=== PATIENT | female | born 1965 | race Caucasian/White ===

== ENCOUNTER 2023-02-03 08:51 | Observation (INO) ==
--- NOTE | 2023-01-27 15:56 | Anesthesiology Consultation ---
Date of Service January 27, 2023 Assessment & Plan (1) Encounter for pre-operative examination: Chart Review Chart Review: Acceptable Risk for Surgery and Patient NOT seen in Pre Admission Testing Hx of PONV- has used scop patch in the past- will leave to anesthesiologist discretion DOS if needed DOS (patient not seen in PAT) - Patient is NOT an OPJ candidate (currently 23 hour observation) -Infectious Disease screening: Per PAT nursing assessment on 01/27/23. No known infectious disease contacts in past 10 days or current infectious disease symptoms. No recent travel outside the country. Left Shoulder Open Rotator Cuff Repair, Distal Clavicle Excision, Acromioplasty 07/22/22= Done under [place] with Grade 2 view with Glidescope #3. ETT #7.5. * *Difficult airway, small mouth History Surgery Operation Date: 02/03/23 10:40 Proposed Procedures p Right Total Knee Arthroplasty with Hardware Removal - Gregory Borrero MD Height/Weight Height: 5 ft Weight: 97.976 kg Allergies Allergy/AdvReac Type Severity Reaction Status Date / Time chlorhexidine Allergy Severe Hives Verified 02/03/23 09:48 Bactrim Allergy Mild N/V/HIVES Verified 12/23/19 07:42 codeine Allergy Mild ITCHING Verified 02/03/23 09:47 hydrocodone Allergy Mild ITCHING Verified 02/03/23 09:47 latex Allergy Mild BLISTERS Verified 02/03/23 09:47 pineapple Allergy Mild Anaphylaxis Verified 02/03/23 09:47 sulfamethoxazole Allergy Mild N/V/HIVES Verified 02/03/23 09:47 tetanus toxoid, adsorbed Allergy Mild SWELLING Verified 02/03/23 09:47 HIVES trimethoprim Allergy Mild N/V/HIVES Verified 02/03/23 09:47 Medications Home Medications Medication Instructions Recorded Confirmed Last Taken albuterol sulfate 90 mcg/actuation 2 puffs inhalation Q6H PRN Wheezing 03/24/18 02/03/23 02/03/23 08:15 aerosol inhaler zljlbaf-lqfnjknuqgvnv-futfhiix 250 2 tab PO Q6H PRN Migraine Headache 03/24/18 02/03/23 07/20/22 mg-250 mg-65 mg tablet (Excedrin Migraine) esomeprazole magnesium 20 mg 20 mg PO QAM 03/24/18 02/03/23 02/03/23 04:00 capsule,delayed release (Nexium) hydroxyzine HCl 50 mg tablet 50 mg PO QID PRN Itching 03/24/18 02/03/23 1 Month Ago ~01/04/23 tizanidine 4 mg capsule 6 mg PO HS 11/17/19 02/03/23 02/02/23 19:00 Knee Scooter #1 ea 05/24/21 01/27/23 Unknown cholecalciferol (vitamin D3) 25 25 mcg PO QAM 05/27/21 02/03/23 2 Weeks Ago mcg (1,000 unit) chewable tablet ~01/20/23 (Vitamin D3) cinnamon bark 500 mg capsule 500 mg PO QAM 05/27/21 02/03/23 2 Weeks Ago (Cinnamon) ~01/20/23 cranberry 400 mg capsule 400 mg PO QAM 05/27/21 02/03/23 2 Weeks Ago ~01/20/23 cyanocobalamin (vitamin B-12) 500 500 mcg PO QAM 05/27/21 02/03/23 2 Weeks Ago mcg tablet ~01/20/23 duloxetine 60 mg capsule,delayed 60 mg PO QAM 05/27/21 02/03/23 02/02/23 04:00 release (Cymbalta) fluticasone furoate 200 1 inh inhalation QAM 05/27/21 02/03/23 02/03/23 04:00 mcg-vilanterol 25 mcg/dose inhalation powder (Breo Ellipta) turmeric root extract 500 mg 500 mg PO QAM 05/27/21 02/03/23 2 Weeks Ago capsule ~01/20/23 Bone Stimulator #1 ea 10/28/21 01/27/23 Unknown Lactobacil.acidophilus-Bifido.animalis 1 cap PO BID 06/30/22 02/03/23 2 Weeks Ago 5 billion cell sprinkle capsule ~01/20/23 (Probiotic) naltrexone 50 mg tablet 25 mg PO QAM 06/30/22 02/03/23 02/03/23 04:00 oxycodone 5 mg tablet 5 - 10 mg (1 - 2 x 5 mg) PO Q6 PRN 07/22/22 02/03/23 1 Week Ago pain #40 tabs ~01/27/23 acetaminophen 650 mg 1,300 mg PO QAM 01/27/23 02/03/23 02/02/23 06:45 tablet,extended release betamethasone dipropionate 0.05 % 1 applic topical DAILY PRN Skin 01/27/23 02/03/23 2 Months Ago topical cream Irritation ~12/04/22 cetirizine 10 mg tablet 10 mg PO QAM 01/27/23 02/03/23 02/03/23 04:00 diclofenac sodium 75 mg 75 mg PO QAM pain 01/27/23 02/03/23 2 Weeks Ago tablet,delayed release ~01/20/23 lamotrigine 25 mg tablet 50 mg PO BID 01/27/23 02/03/23 02/03/23 04:00 lorazepam 0.5 mg tablet 0.5 mg PO Q6H PRN Anxiety 01/27/23 02/03/23 1 Week Ago ~01/27/23 metoprolol succinate 50 mg 50 mg PO QAM 01/27/23 02/03/23 02/03/23 04:00 tablet,extended release 24 hr ondansetron 4 mg disintegrating 4 mg PO Q8H PRN nausea 01/27/23 02/03/23 Unknown tablet pregabalin 150 mg capsule 150 - 300 mg PO UD 01/27/23 02/03/23 02/03/23 04:00 tramadol 50 mg tablet 50 mg PO Q6H pain 01/27/23 02/03/23 2 Days Ago ~02/01/23 varenicline 0.5 mg (11)-1 mg (42) 1 ea PO BID 01/27/23 02/03/23 02/03/23 04:00 tablets in a dose pack acetaminophen 500 mg tablet 1,000 mg (2 x 500 mg) PO TID pain 02/01/23 02/03/23 Unknown (Tylenol Extra Strength) 30 days #180 tabs aspirin 81 mg tablet,delayed 81 mg PO BID 45 days #90 tabs 02/01/23 02/03/23 Unknown release (Anabela Low Dose Aspirin) cefadroxil 500 mg capsule 500 mg PO BID 7 days #14 caps 02/01/23 02/03/23 Unknown hydromorphone 2 mg tablet 2 - 4 mg (1 - 2 x 2 mg) PO Q6 PRN 02/01/23 02/03/23 Unknown pain #40 Tabs ketorolac 10 mg tablet 10 mg PO Q6 pain 5 days #20 tabs 02/01/23 02/03/23 Unknown ondansetron 4 mg disintegrating 4 mg PO Q8 PRN nausea #20 tabs 02/01/23 02/03/23 Unknown tablet sennosides 8.6 mg tablet (Senokot) 8.6 mg PO BID prevent constipation 02/01/23 02/03/23 Unknown 14 days #28 tabs Active Medications Generic Name Dose Route Start Last Admin Trade Name Marissa PRN Reason Stop Dose Admin Acetaminophen 1,000 mg 02/03/23 06:00 02/03/23 10:00 Acetaminophen 500 Mg Tab PO 02/03/23 18:00 1,000 mg PREOP PEREZ Administration Celecoxib 200 mg 02/03/23 06:00 02/03/23 10:01 Celebrex 200 Mg Cap PO 02/03/23 18:00 200 mg PREOP PEREZ Administration Clonidine HCl 1 patch 02/03/23 06:00 02/03/23 10:01 Clonidine Hcl 0.1 Mg/24 Hr Transderm Sys TD 02/03/23 18:00 1 patch PREOP PEREZ Administration Dexamethasone Sodium Phosphate 10 mg 02/03/23 06:00 02/03/23 10:02 DexamethasonePf 10 Mg/Ml Vial IV 02/03/23 18:00 10 mg PREOP PEREZ Administration Famotidine 20 mg 02/03/23 06:00 02/03/23 10:01 Famotidine 20 Mg Tab PO 02/03/23 18:00 20 mg PREOP PEREZ Administration Lactated Ringer's 1,000 mls @ 15 mls/hr 02/03/23 06:00 02/03/23 10:00 Lr IV 02/03/23 18:00 15 mls/hr .Q24H PEREZ Administration Lactated Ringer's 1,000 mls @ 60 mls/hr 02/03/23 06:00 02/03/23 09:59 Lr IV 02/03/23 22:39 Not Given .[id number] PEREZ Metoclopramide HCl 10 mg 02/03/23 06:00 02/03/23 10:01 Metoclopramide Hcl 10 Mg Tablet PO 02/03/23 18:00 10 mg PREOP PEREZ Administration Past Medical History Medical History Difficult intravenous access Insulin resistance Cannot tolerate medications Mood disorder lamictal daily Migraine hx Anxiety HTN (hypertension) controlled, stable per pt Hiatal hernia hx-"now resolved" Sleep apnea not currently using cpap Nausea and vomiting after administration of anesthetic agent stated has received scop patch, denies adverse events Asthma well controlled, exercise and perfume induced; last inhaler use 2nd week of 01/2023 Chronic GERD controlled, stable per pt Depression Cervical radiculopathy Past Family History Family History Son Diabetes Past Surgical History Surgical History History of shoulder surgery Left Shoulder Open Rotator Cuff Repair, Distal Clavicle Excision, Acromioplasty 07/22/22= Done under [place] with Grade 2 view with Glidescope #3. ETT #7.5. Difficult airway, small mouth History of esophagogastroduodenoscopy (EGD) History of colonoscopy History of section X2 History of cholecystectomy History of tooth extraction Hx of breast reduction, elective to left, implant to the right side (replacement of right side also) History of carpal tunnel release bilat. H/O foot surgery right foot-neuroma/bunion sx 05/28/2122 Grade 2 view, MAC 3, ETT 7 + PNB. H/O knee surgery X2 right , X1 left Social History Smoking Status: Current every day smoker tobacco type: e-cigarettes Smoking cigarettes per day: currently vaping daily Do You Dip or Chew Tobacco: No Smoking End Date: cigarettes 4-5 years ago Hx Alcohol Use: Yes alcohol intake frequency: other Alcohol Intake Frequency Comment: very rarely Hx Substance Use: No substance use type: does not use Physical Exam Vital Signs Last Vital Signs Temp 36.9 C 02/03/23 09:49 Pulse 77 02/03/23 09:49 Resp 20 02/03/23 09:49 BP 152/90 H 02/03/23 09:49 Pulse Ox 98 02/03/23 09:49 O2 Del Method Room Air 02/03/23 09:49 Lab Results Anesthesia Preop Results Results Anesthesia Widget: WBC 9.49 K/ul (4.8-10.8) 01/26/23 Hgb 14.5 g/dl (12.0-16.0) 01/26/23 Hct 43.2 % (37.0-47.0) 01/26/23 Plt 319 K/uL (130-400) 01/26/23 Na 140 mmol/L (136-145) 01/26/23 K 3.6 mmol/L (3.5-5.1) 01/26/23 Cl 104 mmol/L (98-107) 01/26/23 CO2 30 mmol/L (21-32) 01/26/23 BUN 13 mg/dl (6-23) 01/26/23 Creat 0.75 mg/dl (0.6-1.2) 01/26/23 Glucose Level 128 mg/dl (70-99(Fasting)) H 01/26/23 PT 11.6 Seconds (9.0-12.0) 01/26/23 PTT 28 Seconds (21-31) 01/26/23 INR 1.1 (0.9-1.1) 01/26/23 HA1c Pending 02/03/23 Blood Type O Positive 01/26/23 Antibody Screen NEGATIVE 01/26/23 Testing Electrocardiogram Date: 07/07/22 Findings: + NSR @ (78bpm) Normal EKG per cardio Chest X-Ray Date: 07/07/22 Findings: + NAD
--- NOTE | 2023-01-31 08:44 | History & Physical Report ---
Date of Service January 31, 2023 Assessment & Plan (1) Degenerative arthritis of knee, bilateral: 57-year-old female with a history of a tibial tubercle osteotomy in the past with advanced bilateral knee DJD right side more symptomatic than left. She has failed conservative treatment. She was actually had plan on having her knee replaced 6 months ago but had to cancel due to a shoulder injury. She is now recovered from this and would like to proceed. Plan: Orgran taken the operating do right total knee replacement with risks Mente this procedure plan the patient clued but not limited to DVT PE infection neurological and vascular bleeding palm pain limb range of motion test is fairly her symptoms incomplete relief of symptoms persistent pain etc. per the patient understands and desires to proceed. Informed consent was obtained. Will probably get have to take at least the superior screw out. Will be prepared for that. Will plan on DVT prophylaxis including thigh-high teds, SCDs, aspirin twice a day for 6 weeks. Will likely put some antibiotic in her cement due to her history of previous open knee surgery. She is plan to be discharged home and doing outpatient therapy. She is going to go to [facility]. History of Present Illness Chief Complaint: . Bilateral knee pain and discomfort right side greater than left. Primary Care Provider: Akilah Mcnair MD . Patient is a 57-year-old female who now presents for surgical treatment of her right knee. As she has had a long history of knee problems and been through extensive conservative treatment. We actually scheduled for knee replacement about 6 months ago but canceled as she had a fall and had to have her rotator cuff repaired. As she had the shoulder surgery is done well from that. She is now limited by her knee pain discomfort. Both knees hurt. The right knee is bit worse than the left. He has been to extensive conservative treatment which has become less successful with time. She is got global pain. The more she is up on it the more it hurts. Swells more as the day goes on. Of note, the patient did have a right knee surgery about [address] Botello. He did a tibial tubercle transfer. Allergies Allergy/AdvReac Type Severity Reaction Status Date / Time acetaminophen Allergy Mild ITCHING Verified 01/27/23 14:59 Bactrim Allergy Mild N/V/HIVES Verified 12/23/19 07:42 codeine Allergy Mild ITCHING Verified 01/27/23 14:59 hydrocodone Allergy Mild ITCHING Verified 01/27/23 14:59 latex Allergy Mild BLISTERS Verified 01/27/23 14:59 pineapple Allergy Mild Anaphylaxis Verified 01/27/23 14:59 sulfamethoxazole Allergy Mild N/V/HIVES Verified 01/27/23 14:59 tetanus toxoid, adsorbed Allergy Mild SWELLING Verified 01/27/23 14:59 HIVES trimethoprim Allergy Mild N/V/HIVES Verified 01/27/23 14:59 Home Medications Medication Instructions Recorded Confirmed Type albuterol sulfate 90 mcg/actuation 2 puffs inhalation Q6H PRN Wheezing 03/24/18 01/27/23 History aerosol inhaler xoqsgpz-gfiykhhiclgef-jssfvbua 250 2 tab PO Q6H PRN Migraine Headache 03/24/18 01/27/23 History mg-250 mg-65 mg tablet (Excedrin Migraine) esomeprazole magnesium 20 mg 20 mg PO QAM 03/24/18 01/27/23 History capsule,delayed release (Nexium) hydroxyzine HCl 50 mg tablet 50 mg PO QID PRN Itching 03/24/18 01/27/23 History tizanidine 4 mg capsule 6 mg PO HS 11/17/19 01/27/23 History Knee Scooter #1 ea 05/24/21 01/27/23 Rx cholecalciferol (vitamin D3) 25 25 mcg PO QAM 05/27/21 01/27/23 History mcg (1,000 unit) chewable tablet (Vitamin D3) cinnamon bark 500 mg capsule 500 mg PO QAM 05/27/21 01/27/23 History (Cinnamon) cranberry 400 mg capsule 400 mg PO QAM 05/27/21 01/27/23 History cyanocobalamin (vitamin B-12) 500 500 mcg PO QAM 05/27/21 01/27/23 History mcg tablet duloxetine 60 mg capsule,delayed 60 mg PO QAM 05/27/21 01/27/23 History release (Cymbalta) fluticasone furoate 200 1 inh inhalation QAM 05/27/21 01/27/23 History mcg-vilanterol 25 mcg/dose inhalation powder (Breo Ellipta) turmeric root extract 500 mg 500 mg PO QAM 05/27/21 01/27/23 History capsule Bone Stimulator #1 ea 10/28/21 01/27/23 Rx Lactobacil.acidophilus-Bifido.animalis 1 cap PO BID 06/30/22 01/27/23 History 5 billion cell sprinkle capsule (Probiotic) naltrexone 50 mg tablet 25 mg PO QAM 06/30/22 01/27/23 History oxycodone 5 mg tablet 5 - 10 mg (1 - 2 x 5 mg) PO Q6 PRN 07/22/22 01/27/23 Rx pain #40 tabs acetaminophen 650 mg 1,300 mg PO QAM 01/27/23 01/27/23 History tablet,extended release betamethasone dipropionate 0.05 % 1 applic topical DAILY PRN Skin 01/27/23 01/27/23 History topical cream Irritation cetirizine 10 mg tablet 10 mg PO QAM 01/27/23 01/27/23 History diclofenac sodium 75 mg 75 mg PO QAM pain 01/27/23 01/27/23 History tablet,delayed release lamotrigine 25 mg tablet 50 mg PO BID 01/27/23 01/27/23 History lorazepam 0.5 mg tablet 0.5 mg PO Q6H PRN Anxiety 01/27/23 01/27/23 History metoprolol succinate 50 mg 50 mg PO QAM 01/27/23 01/27/23 History tablet,extended release 24 hr ondansetron 4 mg disintegrating 4 mg PO Q8H PRN nausea 01/27/23 01/27/23 History tablet pregabalin 150 mg capsule 150 - 300 mg PO UD 01/27/23 01/27/23 History tramadol 50 mg tablet 50 mg PO Q6H pain 01/27/23 01/27/23 History varenicline 0.5 mg (11)-1 mg (42) 1 ea PO BID 01/27/23 01/27/23 History tablets in a dose pack Past Med/Surg History Medical History Difficult intravenous access Insulin resistance Cannot tolerate medications Mood disorder lamictal daily Migraine hx Anxiety HTN (hypertension) controlled, stable per pt Hiatal hernia hx-"now resolved" Sleep apnea not currently using cpap Nausea and vomiting after administration of anesthetic agent stated has received scop patch, denies adverse events Asthma well controlled, exercise and perfume induced; last inhaler use 2nd week of 01/2023 Chronic GERD controlled, stable per pt Depression Cervical radiculopathy Surgical History History of shoulder surgery Left Shoulder Open Rotator Cuff Repair, Distal Clavicle Excision, Acromioplasty 07/22/22= Done under [place] with Grade 2 view with Glidescope #3. ETT #7.5. Difficult airway, small mouth History of esophagogastroduodenoscopy (EGD) History of colonoscopy History of section X2 History of cholecystectomy History of tooth extraction Hx of breast reduction, elective to left, implant to the right side (replacement of right side also) History of carpal tunnel release bilat. H/O foot surgery right foot-neuroma/bunion sx 05/28/2122 Grade 2 view, MAC 3, ETT 7 + PNB. H/O knee surgery X2 right , X1 left Family History Son Diabetes Social History Smoking Status: Current every day smoker Tobacco Type: Cigarettes and E-cigarettes / Vaping Cigarettes Per Day: currently vaping daily; Second Hand Exposure: No; Do You Dip or Chew Tobacco: No; Hx Alcohol Use: Yes Hx Substance Use: No Preferred Language: Mongolian Communication Ability: Effective Hearing Ability: Normal Hitting Coach Required: No Beliefs That Will Affect Care: None marital status: Current Living Situation: Spouse current occupational status: employed Feels Safe at Home: Yes Assistive Devices: Glasses Review of Systems All systems reviewed & are unremarkable except as noted in HPI & below. Physical Exam . Physical examination of the right knee reveals patient to ambulates independently. Got a moderate to large soft tissue envelope. She got a well- healed incision in the front of her knee. Is got varus alignment. She is tender medial joint line. Range of motion about 10 degrees show full extension to about 115 degrees of flexion.. No pain with hip motion. Negative straight leg raise. Constitutional WD/WN, vitals as above Respiratory normal respiratory effort, lungs clear to auscultation Cardiovascular RRR, no murmur, no edema Gastrointestinal (Abdomen) normal bowel sounds, soft, nontender, no hepatosplenomegaly Results & Data Results & Data Laboratory Results . Diagnostic Findings . X-rays of the right knee reveal advanced right knee DJD. She is got complete loss of medial joint space. She got osteophytes primarily medially. She is got evidence of the tibial tubercle osteotomy with 2 tibial tubercle screws. She is got advanced tricompartment disease. PG Care Time/CCT Total # of Minutes Spent Total Time Spent with Patient: Total time spent is greater than 50% in coordination of care (as documented) at patient's floor/unit and/or counseling patient: Coding Level of Care Code None Diagnoses Degenerative arthritis of knee, bilateral M17.0
[~2023-02-03 08:51] MED LIST: ACETAMINOPHEN 500 MG TAB PO SCH; BUPIVACAINE LIPOSOME/PF 266 MG, BUPIVACAINE/EPINEPHRINE 50 ML, SODIUM CHLORIDE 0.9% PF ... INFIL SCH; CeleBREX 200 MG CAP PO SCH; FAMOTIDINE 20 MG TAB PO SCH; LR 500ML BOLUS, THEN 15ML/HR IV SCH; LR 60ML/HR IV SCH; METOCLOPRAMIDE HCL 10 MG TABLET PO SCH; ROPIVACAINE 0.5% 5 MG/ML 30 ML VIAL ONE; TRANEXAMIC ACID 1,000 MG **IV Intra-op IV SCH; ceFAZolin 2000MG 2,000 MG/15 ML SYR IV SCH; cloNIDine HCL 0.1 MG/24 HR TRANSDERM SYS TD SCH; dexAMETHasone**PF** 10 MG/ML VIAL IV SCH
--- NOTE | 2023-02-03 09:06 | History & Physical Bridge Note ---
Date of Service February 03, 2023 History & Physical Bridge Note I have examined the patient, reviewed the History & Physical and in the interval since the performance of the History & Physical I have noted the following changes of clinical significance: no changes noted
[2023-02-03] MEDS ORDERED: LIDOCAINE 2% 2 ML VIAL/AMP(20MG/ML) INFIL ONE (09:47)
[2023-02-03] MEDS ORDERED: MIDAZOLAM HCL 1 MG/ML 2ML VIAL ONE ×3 (09:47→11:50)
[2023-02-03] MEDS ORDERED: ONDANSETRON INJ 2 MG/ML 2 ML VIAL ONE (09:47)
[2023-02-03] MEDS ORDERED: PROPOFOL IV EMULSION 10 MG/ML 20 ML VIAL IV ONE (09:47)
[2023-02-03 10:22] LABS: Estimated Average Glucose 123 mg/dl; Hemoglobin A1C 5.9 % (4.5-5.6)
[2023-02-03] MEDS ORDERED: KETOROLAC 30 MG/ML VIAL IV PRN (10:22)
[2023-02-03] MEDS ORDERED: HYDROmorphone INJ 1 MG/ML SYRINGE IV PRN (10:22)
[2023-02-03] MEDS ORDERED: ATROPINE SULFATE 0.1 MG/ML 10ML SYR IV PRN (10:22)
[2023-02-03] MEDS ORDERED: PROMETHAZINE HCL 6.25 MG in SODIUM CHLORIDE 0.9% 50 ML IV PRN (10:22)
[2023-02-03] MEDS ORDERED: ONDANSETRON INJ 2 MG/ML 2 ML VIAL IV PRN ×2 (10:22→15:24)
[2023-02-03] MEDS ORDERED: ePHEDrine sulfate 50 MG/ML AMP IV PRN (10:22)
[2023-02-03] MEDS ORDERED: SODIUM CHLORIDE 0.9% PF 50 ML VIAL ONE (11:19)
[2023-02-03] MEDS ORDERED: BUPIVACAINE/EPINEPHRINE 0.25% 1:200,000 30 ML VIAL ONE (11:19)
[2023-02-03] MEDS ORDERED: VANCOMYCIN HCL 1000MG/20ML VIAL ONE (11:19)
[2023-02-03] MEDS ORDERED: BUPIVACAINE LIPOSOME 1.3% 266 MG/20 ML VIAL ONE (11:20)
--- NOTE | 2023-02-03 13:47 | Operative Report ---
PG Post Operative Report Pre & Post Diagnosis Operation Date: 02/03/23 10:40 Pre-Op Diagnosis: Degenerative arthritis of knee, bilateral - right greater than left Post-Op Diagnosis: Degenerative arthritis of knee, bilateral - right greater than left I identified the patient and participated in the time-out.: Yes Procedure Operation Date: 02/03/23 10:40 Actual Procedures p Right Total Knee Arthroplasty with Hardware Removal(Right) - Gregory Borrero MD Surgeon Gregory Borrero MD Pre Kindergarten Teacher Solis Estrella PA-C Estimated Blood Loss 50 Findings Consistent with Post-Op Diagnosis Operative findings with advanced right knee tricompartment DJD. She had extensive grade 4 cvqn-[id number] disease in all 3 compartments most severe medially. She had retained hardware which had to be removed. She had a fixed varus varus deformity to her knee. Some moderate osteopenia. Bone spurs in all 3 compartments. Specimens Right knee sent for pathology. Drains None Anesthesia Type Spinal MAC Complications none Indications Patient is a 57-year-old female is had a long history of right knee pain discomfort is gradually gotten worse over time. She is had a tibial tubercle osteotomy done 30 years or so ago. She BenzoDox conservative care extensively without adequate relief. She is actually scheduled for knee surgery about 6 months ago but had a fall onto her rotator cuff and had to have this fixed. She is now recovered from that and has elected proceed with total knee arthroplasty. Description of Procedure Operative implants consist of: 1. Biomet Vanguard size 57.5 right posterior stabilized femoral component. 2. Biomet size 63 tibial tray. 3. 10 mm post stabilized polyethylene insert. 4. 28 x 8 all poly patella. The patient was taken the operating, identified, placed on the operating table in the supine position. All contact areas were appropriately padded. IV antibiotics tried by anesthesia team. A Chatman catheter was placed in sterile fashion. A right Hytinic was placed. The right lower extremity was then prepped and draped in usual sterile fashion. The right leg was elevated exsanguinated with use of an Esmarch and the tourniquet placed at 300 mmHg. An anterior approach to the right knee was then performed to longitudinal incision using the previous incision for the osteotomy and extending it proximally. Sharp dissection was carried through subcutaneous tissue down the extensor mechanism. Medial parapatellar arthrotomy incision was made. Some subperiosteal dissection was carried out medially. The fat pad was resected from Neath patella tendon. Lateral patellofemoral ligament was released. Patella subluxated laterally and the knee was flexed. The osteophytes taken off distal femur. The ACL and PCL released from the distal femur. I did spend quite a bit of time mobilizing her extensor mechanism as it was fairly scarred down. The tibial tubercle was medialized as well which made exposure bit more difficult. The knee was flexed. The patella subluxated laterally. The lateral patellofemoral ligament was released. The. The tibia subluxated anteriorly. The external tibial alignment jig was then placed in the interface the tibia and adjusted 12 mm medially. Proximal tibial cut was made to move out a millimeter bone from most deficient aspect medial tibial plateau. Some osteophytes taken off medial and posterior medially. Attention drawn the femur. The distal femur was then with a sharp drill. Intramedullary canal was suction. A right 5 degree valgus cutting guide was placed. The distal femoral cutting block was pinned in place. Distal femoral cut was made to take an additional 3 mm of bone off distal femur. The femur was then sized to a size 57.5. The AP cutting block was pinned parallel to the epicondylar axis which was 4 degrees of external rotation. Anterior cut, anterior chamfer, posterior cut, posterior chamfer cuts were made. The box cutting guide was placed in just the box cut was made. The knee was flexed. The remnants of the medial and lateral menisci were excised. The osteophytes taken off the posterior aspect of femur. Attention drawn toward removing the hardware. I attempted to find the screw location of the superior screw but was having difficulty doing that. Therefore I brought fluoroscopy in the to exactly find out where this was as I did not want to damage his patella tendon and the tibial tubercle insertion. We located this under fluoroscopy. I was able to remove some bone over the screw and identified. I backed it out without incident. We then proceeded with a preparation of bone. The femoral component was then placed. The tibial tray was pinned Simin external rotation and the drill and stem punch used to create defect in proximal tibia for the tibial tray. The knee was then trialed and the 10 mm insert fit most appropriately. Attention drawn the patella. The patella was cleaned of all soft tissues. Patella thickness measured 20 mm in thickness was cut down to 13. Was sized to a size 28 patella. The lug holes were drilled for the 28 patella. Lateral osteophytes removed. Patella button was placed. Knee was taken through range of motion patella tracked nicely with no thumbs test. Attention drawn to placing the permanent components. Nupathe all trial components were removed. Bone plug was placed in the distal femur limit blood loss. Double batch of Palacos G cement was mixed. I did add an additional gram of vancomycin due to her history of open surgery. Diabetes history and significant obesity. A Biomet Vanguard size 57.5 right Po stabilized femoral component, a size 63 tibial tray, a 10 mm pro stabilized polyethylene insert, and a 28 x 8 all poly patella then cemented in place. The knee was brought out into full extension till cement hardened. Final cement check was then performed. The pericapsular tissues were injected with total 100 cc of combination of 20 cc of Exparel, 30 cc normal saline, 50 cc of quarter percent Marcaine with epinephrine. Patient did receive 1 g tranexamic acid. The tourniquet was then let down for final tourniquet time 71 minutes. Hemostasis assured with electrocautery. Extensor mechanism closed with combination 1 PDS suture #1 Vicryl suture in [id number]-qi-qyydn fashion. Extensor mechanism checked found to be intact through the subcutaneous tissues then close d with 2 Dexon suture in a buried interrupted fashion skin was closed skin eduard. Leg was then cleaned and dried and sterile dressing was Xeroform, 4 fours, sterile cast padding, Fadi bandage were applied. Patient then transferred to the recovery room in stable condition. Patient tolerated procedure well and there were no complications. Solis Estrella, my physician journeyman operator assistant, was present for the entire procedure. His assistance was essential and required for appropriate patient positioning, prepping and draping, surgical exposure, performing the technical details of the operation, placement the implants, closure of the wound, and placement of the sterile bandage. I attest to the content of the Intraoperative Record and any orders documented therein. Any exceptions are noted below.
--- NOTE | 2023-02-03 14:12 | Anesthesiology Progress Note ---
Date of Service February 03, 2023 Anesthesia Post Procedure Vital Signs Vital Signs: Temp Pulse Resp BP Pulse Ox O2 Del Method O2 Flow Rate 02/03/23 14:00 71 16 138/77 97 Oxymask 4 02/03/23 13:50 73 15 134/76 99 Oxymask 4 02/03/23 13:42 36.3 C L 83 12 146/83 H 96 Oxymask 6 02/03/23 09:49 36.9 C 77 20 152/90 H 98 Room Air Transfer of Care Handoff Completed per policy Notes Mental Status: alert / awake / arousable Patient Amnestic to Procedure: Yes Nausea / Vomiting: adequately controlled Pain: adequately controlled Airway Patency, RR, SpO2: stable & adequate BP & HR: stable & adequate Hydration State: stable & adequate Neuraxial Anesthesia: was administered and sensory block is resolving Anesthetic Complications: no major complications apparent
--- NOTE | 2023-02-03 14:22 | XRay Report ---
RIGHT KNEE 2 VIEWS History: Right total knee arthroplasty. Degenerative arthritis. Postop. FINDINGS: The patient is status post a right total knee arthroplasty. The hardware is intact. No frac ture or dislocation. Skin eduard are in place. IMPRESSION: Right total knee arthroplasty. No evidence for hardware complication. ACT 112: Negative or not required by law. Electronically signed by: Shimon Owens M.D. 02/03/2023 2:19 PM
--- NOTE | 2023-02-03 14:26 | Fluoroscopy Report ---
FL knee RT 1 or 2V CLINICAL HISTORY: RT HARDWARE REMOVAL COMPARISON STUDY: Right knee radiographs January 01, 2023. FLUOROSCOPY TIME: 5.7 seconds. Ka, r: 0.58 mGy FLUOROSCOPIC IMAGES: 2 FINDINGS: Fluoroscopy was provided during removal of the right tibial hardware. 2 fluoroscopic images demonstrate 2 screws within the right tibia. Subsequent right knee radiographs following the arthrop lasty demonstrated removal of the proximal screw. Distal screw remains in place. IMPRESSION: Fluoroscopy provided during right tibial hardware removal, as described above. ACT 112: Negative or not required by law. Electronically signed by: Tim Ly M.D. 02/03/2023 2:25 PM
[2023-02-03] MEDS ORDERED: LORazepam 0.5 MG TAB PO PRN (15:24)
[2023-02-03] MEDS ORDERED: NALOXONE HCL 0.4 MG/1 ML VIAL/CARP IV PRN (15:24)
[2023-02-03] MEDS ORDERED: ALBUTEROL HFA 8 GM INHALER INH PRN (15:24)
[2023-02-03] MEDS ORDERED: GLUCOSE 10 TAB/TUBE PO PRN (15:24)
[2023-02-03] MEDS ORDERED: bisacodyL 10 MG SUPP PR PRN (15:24)
[2023-02-03] MEDS ORDERED: HYDROmorphone INJ 0.5 MG/0.5 ML SYR IV PRN (15:24)
[2023-02-03] MEDS ORDERED: METOCLOPRAMIDE HCL INJ 5 MG/ML 2 ML VIAL IV PRN (15:24)
[2023-02-03] MEDS ORDERED: CARBOHYDRATES FOR HYPOGLYCEMIA PO PRN (15:24)
[2023-02-03] MEDS ORDERED: TAMSULOSIN HCL 0.4 MG CAP PO PRN (15:24)
[2023-02-03] MEDS ORDERED: GLUCAGON FOR INJ 1 MG VIAL SQ PRN (15:24)
[2023-02-03] MEDS ORDERED: MAGNESIUM HYDROXIDE SUSP 30 ML UDC PO PRN (15:24)
[2023-02-03] MEDS ORDERED: DEXTROSE 50% 50 ML SYRINGE IV PRN (15:24)
[2023-02-03] MEDS ORDERED: diphenhydrAMINE Capsule 25 MG CAP PO PRN (15:24)
[2023-02-03] MEDS ORDERED: ALUMINUM/MAGNESIUM SUSP 30 ML UDC PO PRN (15:24)
[2023-02-03] MEDS ORDERED: PHARMACY GLYCEMIC MGMT CONSULT PRN (15:24)
[2023-02-03] MEDS ORDERED: GLUCOSE 40% GEL 15 GM TUBE PO PRN (15:24)
[2023-02-03] MEDS ORDERED: NON-FORMULARY MEDICATION (Betamethasone Dipropionate 0.05 % Cream) TOP PRN (15:24)
[2023-02-03] MEDS ORDERED: hydrOXYzine HCl 25 MG TAB PO PRN (15:24)
[2023-02-03] MEDS: SODIUM CHLORIDE 0.9% 1,000 ML IV SCH (16:04)
[2023-02-03] MEDS: KETOROLAC 30 MG/ML VIAL IV SCH ×2 (16:05→23:23)
[2023-02-03] MEDS: ACETAMINOPHEN 500 MG TAB PO SCH ×2 (16:05→21:10)
[2023-02-03] MEDS: Scopolamine CHECK PATCH PLACEMENT SCH (16:06)
[2023-02-03] MEDS: HYDROmorphone HCL 2 MG TAB PO PRN ×2 (17:10→23:22)
[2023-02-03] MEDS: ASCORBIC ACID 500 MG TAB PO SCH (17:11)
[2023-02-03] MEDS: INSULIN ASPART PER UNIT CHARGE SC SCH ×2 (18:42→21:08)
[2023-02-03] MEDS ORDERED: TRANEXAMIC ACID / 0.7% NACL 1,000 MG/100 ML BAG IV SCH (19:45)
[2023-02-03] MEDS: ceFAZolin 2000MG 2,000 MG/15 ML SYR IV SCH (19:57)
[2023-02-03] MEDS ORDERED: LANTUS PER UNIT CHARGE SC ONE (20:45)
[2023-02-03] MEDS ORDERED: NON-FORMULARY MEDICATION (L. Acidophilus/Bifid. Animalis [Probiotic] 5 billion cell Capsul PO SCH (21:00)
[2023-02-03] MEDS ORDERED: PREGABALIN 150 MG CAP PO SCH (21:00)
[2023-02-03] MEDS ORDERED: SENNA 8.6 MG TAB PO SCH (21:00)
[2023-02-03] MEDS ORDERED: tiZANidine HCL 4 MG TABLET PO SCH (21:00)
[2023-02-03] MEDS: ASPIRIN 81 MG ECTAB PO SCH (21:10)
[2023-02-03] MEDS: lamoTRIgine 25 MG TAB PO SCH (21:10)
[2023-02-03] MEDS: DOCUSATE SODIUM 100 MG CAP PO SCH (21:11)
[2023-02-03] MEDS: SENNA 8.6 MG TAB PO SCH (21:11)
[2023-02-04] MEDS: Scopolamine CHECK PATCH PLACEMENT SCH ×2 (00:05→08:59)
[2023-02-04] MEDS: SODIUM CHLORIDE 0.9% 1,000 ML IV SCH (01:41)
[2023-02-04] MEDS: ceFAZolin 2000MG 2,000 MG/15 ML SYR IV SCH (02:48)
[2023-02-04] MEDS: KETOROLAC 30 MG/ML VIAL IV SCH (05:37)
[2023-02-04 07:15] LABS: Hematocrit (blood only) 37.6 % (37.0-47.0); Hemoglobin 12.3 g/dl (12.0-16.0); Mean Corpuscular Hemoglobin 28.6 pg (25.0-34.0); Mean Corpuscular Hgb Conc 32.7 g/dL (32.0-36.0); Mean Corpuscular Volume 87.4 fL (80.0-100.0); Mean Platelet Volume 9.6 fL (9.4-12.4); Platelet Count 293 K/uL (130-400); RDW Coefficient of Variation 13.5 % (11.5-14.5); RDW Standard Deviation 42.9 fL (36.4-46.3); White Blood Count 17.28 K/ul (4.8-10.8)
[2023-02-04 07:50] LABS: BUN Creatinine Ratio 22.1 (10-20); Calcium 8.8 mg/dl (8.6-10.3); Creatinine Clr Calc Pharmacy 83.3 ml/min; Est GFR (African American) 98.6 ml/min; Est GFR (Non-African American) 85.1 ml/min; Potassium 4.1 mmol/L (3.5-5.1)
[2023-02-04] MEDS ORDERED: dexAMETHasone 10 MG in SYRINGE 0 ML IV SCH (08:00)
[2023-02-04] MEDS: DOCUSATE SODIUM 100 MG CAP PO SCH (08:56)
[2023-02-04] MEDS: HYDROmorphone HCL 2 MG TAB PO PRN (08:56)
[2023-02-04] MEDS: lamoTRIgine 25 MG TAB PO SCH (08:57)
[2023-02-04] MEDS: SENNA 8.6 MG TAB PO SCH (08:57)
[2023-02-04] MEDS: ASCORBIC ACID 500 MG TAB PO SCH (08:58)
[2023-02-04] MEDS: ASPIRIN 81 MG ECTAB PO SCH (08:58)
[2023-02-04] MEDS: ACETAMINOPHEN 500 MG TAB PO SCH (08:59)
[2023-02-04] MEDS ORDERED: METOPROLOL SUCC 50MG EXT REL TAB PO SCH (09:00)
[2023-02-04] MEDS ORDERED: PREGABALIN 150 MG CAP PO SCH (09:00)
[2023-02-04] MEDS ORDERED: CYANOCOBALAMIN (B-12) 500 MCG TABLET PO SCH (09:00)
[2023-02-04] MEDS ORDERED: LANTUS PER UNIT CHARGE SC SCH (09:00)
[2023-02-04] MEDS ORDERED: DULoxetine HCL 60 MG CAP PO SCH (09:00)
[2023-02-04] MEDS ORDERED: NON-FORMULARY MEDICATION (Turmeric Root Extract 500 mg Capsule) PO SCH (09:00)
[2023-02-04] MEDS ORDERED: MULTIVITAMIN TAB PO SCH (09:00)
[2023-02-04] MEDS ORDERED: CETIRIZINE HCL 10 MG TABLET PO SCH (09:00)
[2023-02-04] MEDS ORDERED: FLUTICASONE/VILANTEROL 200/25MCG 14 PUFFS/INHALER INH SCH (09:00)
[2023-02-04] MEDS ORDERED: NON-FORMULARY MEDICATION (Cinnamon Bark [Cinnamon] 500 mg Capsule) PO SCH (09:00)
[2023-02-04] MEDS ORDERED: NALTREXONE HCL 50 MG TAB PO SCH (09:00)
[2023-02-04] MEDS ORDERED: PANTOprazole 40 MG TAB PO SCH (09:00)
[2023-02-04] MEDS ORDERED: CHOLECALCIFEROL 1,000 UNITS 25 MCG TAB PO SCH (09:00)
[2023-02-04] MEDS: INSULIN ASPART PER UNIT CHARGE SC SCH (09:12)
--- NOTE | 2023-02-04 09:29 | Orthopedic Progress Note ---
Date of Service February 04, 2023 Assessment & Plan (1) Status post right knee replacement: Overall, she is doing quite well today with good pain control to the right knee. She will work with physical therapy today to work on ambulation and range of motion exercises. She is on aspirin for DVT prophylaxis. She can be discharged home later today after physical therapy evaluation. She will follow-up with Dr. Borrero in 2 weeks for postoperative care. Geneva Hernandez was seen and evaluated at bedside today resting comfortably in no apparent distress. She notes that she has been up and out of bed and ambulating to the bathroom with no issues. She has yet to be seen by physical therapy this morning. She denies any other concerns. Review of Systems All systems reviewed & are unremarkable except as noted in HPI & below. Physical Exam . On physical examination of the right knee, dressing is in place, clean, dry, intact. Her leg is out in full extension. She has active plantarflexion dorsiflexion to the right ankle. +2 DP and PT pulses. Less than 2-second capillary refill. Normal sensation. Neurovascular intact. Results & Data Results & Data Laboratory Results . Diagnostic Findings . Postoperative x-rays of the right knee show prosthesis to be in anatomical alignment with no evidence of fracture complication or loosening. PG Care Time/CCT Total # of Minutes Spent Total Time Spent with Patient: Total time spent is greater than 50% in coordination of care (as documented) at patient's floor/unit and/or counseling patient: Coding Level of Care Code 57893 Post Operative Follow-Up Diagnoses Status post right knee replacement Z96.651
--- NOTE | 2023-02-04 09:31 | Discharge Summary ---
Date of Service February 04, 2023 Admission HPI (Per Admitting) . Patient is a 57-year-old female who now presents for surgical treatment of her right knee. As she has had a long history of knee problems and been through extensive conservative treatment. We actually scheduled for knee replacement about 6 months ago but canceled as she had a fall and had to have her rotator cuff repaired. As she had the shoulder surgery is done well from that. She is now limited by her knee pain discomfort. Both knees hurt. The right knee is bit worse than the left. He has been to extensive conservative treatment which has become less successful with time. She is got global pain. The more she is up on it the more it hurts. Swells more as the day goes on. Of note, the patient did have a right knee surgery about [address] Botello. He did a tibial tubercle transfer. Admission Exam (Per Admitting) . Physical examination of the right knee reveals patient to ambulates independently. Got a moderate to large soft tissue envelope. She got a well-healed incision in the front of her knee. Is got varus alignment. She is tender medial joint line. Range of motion about 10 degrees show full extension to about 115 degrees of flexion.. No pain with hip motion. Negative straight leg raise. Principal Diagnosis Same as "Discharge Diagnosis" noted below under Discharge Instructions. Discharge Exam . On physical examination of the right knee, dressing is in place, clean, dry, intact. Her leg is out in full extension. She has active plantarflexion dorsiflexion to the right ankle. +2 DP and PT pulses. Less than 2-second capillary refill. Normal sensation. Neurovascular intact. Discharge Data Procedures Performed Operation Date: 02/03/23 10:40 Actual Procedures p Right Total Knee Arthroplasty (Right) - Gregory Borrero MD s with Hardware Removal(Right) - Gregory Borrero MD Ordered Studies 02/03/23 FL knee RT 1 or 2V Routine 02/03/23 05:00 US - OR guided needle placemen Routine Hospital Course (1) Status post right knee replacement: On February 03, 2023 Mary arrived at [facility] and underwent a right total knee arthroplasty without complications. She had a spinal anesthetic. Postoperatively, she was started on aspirin for DVT prophylaxis and transferred to the general orthopedic floor in stable condition. Her hospital course was uneventful. On postoperative day #1, her vital signs are stable and her pain was well-controlled. She participated well with physical therapy working on ambulation and range of motion exercises. She was then discharged home in stable condition. She is going to follow-up with Dr. Borrero in 2 weeks for postoperative care. PG Care Time/CCT Total # of Minutes Spent Total Time Spent with Patient: Total time spent is greater than 50% in coordination of care (as documented) at patient's floor/unit and/or counseling patient: Discharge Plan Discharge Items Patient Disposition: Home - Self-Care Reason For Visit: Right Knee DJD Right Knee Painful Hardware Discharge Diagnosis: Right Knee Replacement Activity: Per Instructions section Weightbearing: Full weightbearing Non-emergency contact: Surgeon Call non-emergency contact if: you have any medication questions Follow-up/Referrals: Akilah Mcnair MD [Primary Care Provider] - Diet: Carb Consistent or DM2 Addtl Attending Provider Instructions: ACTIVITY RECOMMENDATIONS: Physical Therapy: * You will go to physical therapy three times each week for four to six weeks after your surgery in order to regain your knee range of motion and to retrain your knee to work properly. * It is just as important to make sure you are getting your knee perfectly straight as it is to regain your knee bend. * Taking a pain pill an hour before therapy can help you have a more productive and comfortable therapy session. Home Exercise: * You were shown a series of exercises (heel props, heel slides, etc.) in the hospital. Do these exercises three to four times each day including the exercises you were shown in physical therapy. Walking: * Get up and walk several times each day. For the first four weeks, try not to stand or walk for more than one hour at a time. If you do stand or walk for more than one hour, you will not hurt anything, but your knee and leg will likely swell. * As you feel comfortable, you may change from the walker or crutches to a cane and then to independent walking. MEDICATIONS: New Medicine: * You will likely be taking one or more of these medications: 1. Dilaudid - A quick and shorter-acting pain medication. Take one to two tablets every six hours to lessen your pain. 2. Aspirin - Thins your blood to lessen the chance of forming a blood clot. * The most common side effects of pain medicine and iron are nausea and constipation. If nausea or constipation is too much of a problem or if you have any questions about your new medicines or doses, call [facility] at [phone]. We will try to help you manage these issues. "VERY IMPORTANT TO READ AND REVIEW" Pain: * The immediate post-operative period after knee replacement surgery is often quite painful. * You are given a prescription for pain medicine. You should take it, as directed, when you need it, especially before physical therapy and before going to bed. Pain that interferes with sleep is very common and can last several months. * You will likely need pain medicine for the first four to six weeks. It will not stop all of the pain. The pain will lessen and as you feel better, you may change to milder pain medicine such as Tylenol. * The most common side effects of pain medicine are nausea and constipation, so don't take more than you need. SPECIAL CARE INSTRUCTIONS: TEDs/Elastic Stockings: * The white elastic stockings help limit swelling and prevent blood clots from forming in your legs. The more you wear them, the more they work. * Wear them for six weeks after knee replacement surgery and four weeks after partial knee replacement. Incision Site Care: * Remove dressing postoperative day 2 and then shower. Keep direct shower pressure off the incision site. * After showering, cover eduard with dry gauze and change daily or more frequently if the dressing is getting saturated with drainage. * Use the SABRINA stockings to hold dressing in place. DO NOT apply tape on the skin. * May completely stop using bandage if wound is dry and no drainage * [place] are removed between 2 and 3 weeks post-op. If your follow-up appointment is made before 2 weeks, please have your appointment re- scheduled. It is too early to remove the eduard. Prevention of Infection: * Take antibiotics one hour before any dental cleaning, dental work, urological procedure, gastrointestinal procedure or any invasive surgery in order to prevent your new joint from getting infected. * You may get the antibiotics from the doctor performing the procedure or you may call our office at [phone] before and we will call in a prescription to the pharmacy of your choice. Things to Watch For: * Drainage from the incision site that occurs more than one week after your surgery. * Severely increased knee/leg pain or swelling. * Increased redness at the incision site. * Fever above 102 degrees Fahrenheit. * Unusual chest pain or shortness of breath. * Unusual pain or burning with urination. Call [facility] at [phone] with any of the above problems or if you have any questions about your medicines or recovery. FOLLOW UP VISIT: Make an appointment to see your doctor for approximately two weeks after surgery for a progress check and staple removal by calling the office at [phone]. Pending Studies at Discharge: No Stand-Alone Forms: My [facility], Smoking Cessation Medications and DC Order Prescriptions: Continued albuterol sulfate 90 mcg/actuation HFA aerosol inhaler 2 puffs INH Q6H PRN (Reason: Wheezing) hydroxyzine HCl 50 mg tablet 50 mg PO QID PRN (Reason: Itching) esomeprazole magnesium [Nexium] 20 mg capsule,delayed release(DR/EC) 20 mg PO QAM (DME) Bone Stimulator Device See Rx Instructions .Route Qty: 1 0RF Rx Instructions: As directed hydromorphone 2 mg tablet 2 - 4 mg PO Q6 PRN (Reason: pain) Qty: 40 0RF Rx Instructions: Take as needed for pain sennosides [Senokot] 8.6 mg tablet 8.6 mg PO BID 14 Days Qty: 28 0RF Rx Instructions: Take two times a day to prevent/treat constipation aspirin [Anabela Low Dose Aspirin] 81 mg tablet,delayed release (DR/EC) 81 mg PO BID 45 Days Qty: 90 0RF Rx Instructions: Take to prevent blood clots. acetaminophen [Tylenol Extra Strength] 500 mg tablet 1,000 mg PO TID 30 Days Qty: 180 0RF Rx Instructions: Take 3 times per day to lessen pain. ketorolac 10 mg tablet 10 mg PO Q6 5 Days Qty: 20 0RF Rx Instructions: Take 4 times per day with food for 5 days to lessen pain and swelling. cefadroxil 500 mg capsule 500 mg PO BID 7 Days Qty: 14 0RF Rx Instructions: Take 1 cap twice a day to prevent infection ondansetron 4 mg tablet,disintegrating 4 mg PO Q8 PRN (Reason: nausea) Qty: 20 1RF Rx Instructions: Take as needed for nausea (DME) Knee Scooter Misc See Rx Instructions .MEDSUPPLY Qty: 1 0RF Rx Instructions: As directed tizanidine 4 mg capsule 6 mg PO HS cyanocobalamin (vitamin B-12) 500 mcg Tablet 500 mcg PO QAM cranberry 400 mg Capsule 400 mg PO QAM cinnamon bark [Cinnamon] 500 mg Capsule 500 mg PO QAM duloxetine [Cymbalta] 60 mg Capsule,Delayed Release(Dr/Ec) 60 mg PO QAM cholecalciferol (vitamin D3) [Vitamin D3] 25 mcg (1,000 unit) Tablet,Chewable 25 mcg PO QAM turmeric root extract 500 mg Capsule 500 mg PO QAM fluticasone furoate-vilanterol [Breo Ellipta] 200-25 mcg/dose Blister With Device 1 inh INHALATION QAM Probiotic 5 billion cell Capsule, Sprinkle 1 cap PO BID cetirizine 10 mg Tablet 10 mg PO QAM metoprolol succinate 50 mg tablet extended release 24 hr 50 mg PO QAM lamotrigine 25 mg tablet 50 mg PO BID lorazepam 0.5 mg tablet 0.5 mg PO Q6H PRN (Reason: Anxiety) betamethasone dipropionate 0.05 % Cream 1 applic TOPICAL DAILY PRN (Reason: Skin Irritation) pregabalin 150 mg capsule 150 - 300 mg PO UD Rx Instructions: 150mg QAM and 300mg HS varenicline 0.5 mg (11)- 1 mg (42) Tablets,Dose Pack 1 ea PO BID ondansetron 4 mg tablet,disintegrating 4 mg PO Q8H PRN (Reason: nausea) Rx Instructions: Take as needed for nausea Discontinued oykjkrp-hystbslmwekdq-nckkuiei [Excedrin Migraine] 250-250-65 mg tablet 2 tab PO Q6H PRN (Reason: Migraine Headache) oxycodone 5 mg tablet 5 - 10 mg PO Q6 PRN (Reason: pain) Qty: 40 0RF Rx Instructions: Take as needed for pain naltrexone 50 mg Tablet 25 mg PO QAM tramadol 50 mg tablet 50 mg PO Q6H diclofenac sodium 75 mg tablet,delayed release (DR/EC) 75 mg PO QAM Rx Instructions: take with food acetaminophen [Tylenol Arthritis] 650 mg Tablet Extended Release 1,300 mg PO QAM Discharge Orders: Discharge Order (Routine); Ordered 02/04/23 Ordered By: Ronni Levine Admission Data Admit Date/Time: 02/03/23 13:43 Attending Provider: Gregory Borrero Admit Provider: Gregory Borrero Primary Care Provider: Akilah Mcnair
--- NOTE | 2023-02-04 10:01 | Pharmacy Report ---
Pharmacy Glycemic Short Note 2 - Date of Service February 04, 2023 - Glycemic Short BSG Results (Last 24 hours): 02/03/23 02/03/23 02/04/23 16:30 20:28 06:20 Glucose 134 H POC Glucose 163 H 162 H 02/04/23 07:39 Glucose POC Glucose 136 H OUTPATIENT ANTIDIABETIC REGIMEN: * none * HbA1c 5.9% (02/03/23) ASSESSMENT: * Mary is a 57 YOM admitted status post total knee arthroplasty with hardware removal. Hemoglobin A1c consistent with prediabetes. Pharmacy has been consulted for glycemic management while inpatient. She received 19 units of insulin yesterday (15 basal) * Fasting BSG within goal range this AM, 10 mg of IV dexamethasone given yesterday and today. Lantus 15 units given to cover each. * Novolog initiated at a weight based stress of 1-2. Seems to be adequately controlling glycemic needs. * Appears to be discharging home today. PLAN FOR INPATIENT GLYCEMIC CONTROL: * Hold outpatient oral diabetes medications * Basal insulin * Lantus 15 units x1 with dexamethasone, reassess if needed * Bolus insulin * NovoLog per scale ACHS or Q6hrs while NPO * Goal Range: Low 110 mg/dL - High 140 mg/dL * Correction Factor: 30 mg/dL/unit * Nutritional / Prandial insulin per carb ratio of 1 unit per 12 grams CHO consumed
== END 2023-02-04 11:26 | disposition home or self-care (01) ==
LOC: ASU 08:51 → 3E 08:51